=== PATIENT | female | born 1965 | race Two or more races ===

== ENCOUNTER 2017-11-02 14:49 | Emergency (ER) | payer BC, MEDICAID ==
--- NOTE | 2017-11-02 15:34 | ER Document Report ---
ED Medical Screen (RME) - General Chief Complaint: Nausea/Vomiting Stated Complaint: BLOOD PRESSURE PROBLEMS Time Seen by Provider: 11/02/17 15:26 Notes: 52-year-old Mohawk-speaking female visiting from out of town. Past medical history diabetes on insulin, hypertension on medication, chronic renal failure on peritoneal dialysis. Did dialysis yesterday. She does not look at the fluid when it drains out. She has felt ill for the past 3 days. She had nausea vomiting 3 times yesterday and 4 times today. She feels dehydrated and weak. Her blood pressure is low compared normal. She reports her baseline blood pressure on medication is 124 systolic. She stopped taking her blood pressure medication 3 days ago due to how she was feeling and her blood pressure being low. There is no history of fever, no URI symptoms. - Related Data Allergies/Adverse Reactions: No Known Allergies Allergy (Unverified 11/02/17 14:53) Past Medical History - Social History Chew tobacco use (# tins/day): No Frequency of alcohol use: None Drug Abuse: None - Past Medical History Cardiac Medical History: Reports: Hx Hypertension Endocrine Medical History: Reports: Hx Diabetes Mellitus Type 2 Renal/ Medical History: Reports: Hx Peritoneal Dialysis
[2017-11-02] MEDS ORDERED: ONDANSETRON 4 MG TAB.RAPDIS PO ONE (16:20)
--- NOTE | 2017-11-02 16:24 | RADIOLOGY REPORT (SQ) ---
EXAM DESCRIPTION: CHEST SINGLE VIEW COMPLETED DATE/TIME: 11/02/2017 4:12 pm REASON FOR STUDY: N,V,Dehydration, ESRD, hypotension COMPARISON: None. EXAM PARAMETERS: NUMBER OF VIEWS: One view. TECHNIQUE: Single frontal radiographic view of the chest acquired. RADIATION DOSE: NA LIMITATIONS: None. FINDINGS: LUNGS AND PLEURA: No opacities, masses or pneumothorax. No pleural effusion. MEDIASTINUM AND HILAR STRUCTURES: No masses. Contour normal. HEART AND VASCULAR STRUCTURES: Cardiac silhouette is enlarged. BONES: No acute findings. HARDWARE: None in the chest. OTHER: No other significant finding. IMPRESSION: Cardiomegaly. No acute consolidations are identified. TECHNICAL DOCUMENTATION: JOB ID: [id number] [employer]- All Rights Reserved
[2017-11-02 17:19] LABS: ABSOLUTE BASOPHILS # (AUTO) 0.1 10^3/uL (0.0-0.2); ABSOLUTE EOSINOPHILS # (AUTO) 0.1 10^3/uL (0.0-0.6); ABSOLUTE LYMPHOCYTES (AUTO) 1.8 10^3/uL (0.5-4.7); ABSOLUTE MONOCYTES (AUTO) 1.1 10^3/uL (0.1-1.4); ABSOLUTE NEUT (AUTO) 12.3 10^3/uL (1.7-8.2); BASOPHILS % (AUTO) 0.7 % (0-2); EOSINOPHILS % (AUTO) 0.8 % (0-6); HEMOGLOBIN 11.1 g/dL (12.0-15.5); LYMPHOCYTES % (AUTO) 11.4 % (13-45); MEAN CORPUSCULAR HEMOGLOBIN 30.5 pg (27.0-33.4); MEAN CORPUSCULAR HGB CONC 31.9 g/dL (32.0-36.0); MEAN CORPUSCULAR VOLUME 96 fl (80-97); PLATELET COUNT 322 10^3/uL (150-450); RED BLOOD COUNT 3.66 10^6/uL (3.72-5.28); RED CELL DISTRIBUTION WIDTH 15.8 % (11.5-14.0); SEGMENTED NEUTROPHILS % (AUTO) 80.1 % (42-78); TOTAL CELLS COUNTED % (AUTO) 100 %; WHITE BLOOD COUNT 15.4 10^3/uL (4.0-10.5)
--- NOTE | 2017-11-02 17:39 | ER Document Report ---
ED General <ANNA MARIE OLJA - Last Filed: 11/02/17 21:58> <CANDELARIA JASON - Last Filed: 11/03/17 18:17> - General Chief Complaint: Nausea/Vomiting Stated Complaint: BLOOD PRESSURE PROBLEMS Time Seen by Provider: 11/02/17 15:26 Notes: 52-year-old female with renal failure on peritoneal dialysis and hypertension visiting from [place] presents with 3 days of "I feel bad" with dizziness nausea and generalized weakness. The symptoms been constant and increasing. She has had decreased oral intake and she feels dehydrated. No change in her peritoneal dialysis. No abdominal pain. She has had peritoneal dialysisassociated parotitis once before and had severe abdominal pain. She denies fevers chills but feels generally sick. No chest pain or shortness of breath. No leg swelling. Denies focal numbness tingling weakness or speech problems (CANDELARIA JASON) - Related Data Allergies/Adverse Reactions: No Known Allergies Allergy (Unverified 11/02/17 14:53) Past Medical History - General Information source: Patient - Social History Smoking Status: Never Smoker Chew tobacco use (# tins/day): No Frequency of alcohol use: None Drug Abuse: None Family History: None Patient has suicidal ideation: No Patient has homicidal ideation: No - Past Medical History Cardiac Medical History: Reports: Hx Hypertension Endocrine Medical History: Reports: Hx Diabetes Mellitus Type 2 Renal/ Medical History: Reports: Hx Peritoneal Dialysis <CANDELARIA JASON - Last Filed: 11/03/17 18:17> Review of Systems <ANNA MARIE LOJA - Last Filed: 11/02/17 21:58> <CANDELARIA JASON - Last Filed: 11/03/17 18:17> - Review of Systems Notes: REVIEW OF SYSTEMS GEN: General is weakness no fevers ENT: Denies sore throat, nasal discharge, ear pain EYES: Denies blurry vision, eye pain, discharge CV: Denies chest pain, palpitations, edema RESP: Denies cough, shortness of breath, wheezing GI: Nausea vomiting no abdominal pain or diarrhea MSK: Denies joint pain/swelling, edema, SKIN: Denies rash, skin lesions LYMPH: Denies swollen glands/lymph nodes NEURO: Denies headache, focal weakness or numbness, dizziness PSYCH: Denies depression, suicidal or homicidal ideation PHYSICAL EXAMINATION General: No acute distress, well-nourished Head: Atraumatic, normocephalic ENT: Mouth normal, oropharynx moist, no exudates or tonsillar enlargement Eyes: Conjunctiva normal, pupils equal, lids normal Neck: No JVD, supple, no guarding CVS: Normal rate, regular rhythm, no murmurs Resp: No resp distress, equal and normal breath sounds bilaterally GI: Nondistended, soft, no tenderness to palpation, no rebound or guarding. Peritoneal dialysis catheter site is clean fluid is clear. Ext: No deformities, no edema, normal range of motion in upper and lower ext Back: No CVA or midline TTP Skin: No rash, warm Lymphatic: No lymphadeopathy noted Neuro: Awake, alert. Face symmetric. GCS 15. Cranial nerves IIthrough 12 are intact, no pronator drift normal cna hospice normal sensation in all 4 extremities. ( CANDELARIA JASON) - Vital signs Vitals: Resp Pulse Ox 24 H 97 11/02/17 15:52 11/02/17 15:52 Course - Laboratory Result Diagrams: 11/02/17 16:58 11/02/17 21:00 <ANNA MARIE LOJA - Last Filed: 11/02/17 21:58> - Laboratory Result Diagrams: 11/02/17 16:58 11/02/17 21:00 - Diagnostic Test Radiology reviewed: Image reviewed, Reports reviewed <CANDELARIA JASON - Last Filed: 11/03/17 18:17> - Re-evaluation Re-evalutation: 11/02/17 21:58 Transport has arrived for patient transfer. She remained stable and appropriate for transport at this time (ANNA MARIE LOJA) 11/02/17 17:38 52-year-old lady presents with generalized weakness nausea and dizziness in the setting of renal failure and peritoneal dialysis. She says her blood pressure at home is been low. She has no focal signs of bacterial illness on exam including no sore throat no signs and symptoms of pneumonia normal saturation and no abdominal pain suggestive of peritoneal dialysis associated peritonitis. Differential includes volume contraction, overt dialysis dehydration viral illness less likely influenza without a fever. We will do basic labs and hydrate her orally because she is a very difficult IV stick. She was given Zofran for nausea. 11/02/17 18:18 Patient has hyperkalemia and multiple other antibiotics including leukocytosis. She has a detectable troponin above 1. Her EKG is nonischemic. This may be due to renal failure but needs to rule out ACS. Given her multiple problems I will transfer to [facility] where she can cardiology backup and definitively rule out acute coronary syndrome. I ordered her albuterol nebulizer Lasix insulin and glucose. Blood cultures have been drawn but I do not see a source of infection right now so I will not give antibiotics. 11/02/17 18:[address] Bond from [facility] who accepted the patient. I will write for a repeat potassium in a couple of hours. Hemodynamically stable routine transport. (CANDELARIA JASON) - Vital Signs Vital signs: Temp Pulse Resp BP Pulse Ox 98.1 F 84 20 140/64 H 98 11/02/17 19:25 11/02/17 19:25 11/02/17 20:41 11/02/17 20:41 11/02/17 20:19 - Laboratory Laboratory results interpreted by me: 11/02/17 11/02/17 11/02/17 16:58 16:58 20:03 WBC 15.4 H RBC 3.66 L Hgb 11.1 L Hct 35.0 L MCHC 31.9 L RDW 15.8 H Seg Neutrophils % 80.1 H Lymphocytes % 11.4 L Absolute Neutrophils 12.3 H Sodium Potassium 5.9 H Chloride 93 L Anion Gap 21 H BUN 86 H Creatinine 11.60 H Est GFR ( Amer) 4 L Est GFR (Non-Af Amer) 3 L Glucose 143 H POC Glucose 124 H AST 70 H ALT 113 H Alkaline Phosphatase 149 H Albumin 3.4 L 11/02/17 21:00 WBC RBC Hgb Hct MCHC RDW Seg Neutrophils % Lymphocytes % Absolute Neutrophils Sodium 135.4 L Potassium Chloride 93 L Anion Gap BUN 86 H Creatinine 11.51 H Est GFR ( Amer) 4 L Est GFR (Non-Af Amer) 3 L Glucose 201 H POC Glucose AST ALT Alkaline Phosphatase Albumin Critical Care Note <ANNA MARIE LOJA - Last Filed: 11/02/17 21:58> - Critical Care Note Total time excluding time spent on procedures (mins): 35 <CANDELARIA JASON - Last Filed: 11/03/17 18:17> - Critical Care Note Comments: The above patient is critically ill. Not including procedures, but including direct re-evaluations, speaking with patient and/or consultants, interpreting results, and documenting, I spent the total amount of minute listed listed above on critical care time (CANDELARIA JASON) Discharge <ANNA MARIE LOJA - Last Filed: 11/02/17 21:58> <CANDELARIA JASON - Last Filed: 11/03/17 18:17> - Discharge Clinical Impression: NSTEMI (non-ST elevated myocardial infarction) Nausea and vomiting Qualifiers: Vomiting type: unspecified Vomiting Intractability: non-intractable Qualified Code(s): R11.2 - Nausea with vomiting, unspecified Chronic kidney disease Qualifiers: Chronic kidney disease stage: unspecified stage Qualified Code(s): N18.9 - Chronic kidney disease, unspecified Condition: Fair Disposition: [facility]
[2017-11-02 17:41] LABS: ALANINE AMINOTRANSFERASE 113 U/L (9-52); ALBUMIN 3.4 g/dL (3.5-5.0); ALKALINE PHOSPHATASE 149 U/L (38-126); ASPARTATE AMINO TRANSFERASE 70 U/L (14-36); BILIRUBIN,DIRECT 0.4 mg/dL (0.0-0.4); BILIRUBIN,TOTAL 0.4 mg/dL (0.2-1.3); BLOOD UREA NITROGEN 86 mg/dL (7-20); CREATINE KINASE 76 U/L (30-135); GLUCOSE 143 mg/dL (75-110); MAGNESIUM 2.2 mg/dL (1.6-2.3); TOTAL PROTEIN 6.6 g/dL (6.3-8.2)
[2017-11-02 18:01] LABS: CARBON DIOXIDE 24 mmol/L (22-30); CHLORIDE 93 mmol/L (98-107)
[2017-11-02 18:04] LABS: ANION GAP 21 (5-19); POTASSIUM 5.9 mmol/L (3.6-5.0)
[2017-11-02] MEDS ORDERED: ALBUTEROL SULFATE 0.083% NEB 2.5 MG/3 ML AMPUL NEB ONE (18:16)
[2017-11-02] MEDS ORDERED: INSULIN REG, HUMAN 100 UNIT/ML 3 ML VIAL (PYX) IV ONE (18:17)
[2017-11-02] MEDS ORDERED: FUROSEMIDE INJ/PF 40 MG/4 ML SDV IV ONE (18:17)
[2017-11-02] MEDS ORDERED: DEXTROSE 50%-WATER 25 GM/50 ML DISP.SYRIN IV ONE (18:17)
[2017-11-02] MEDS ORDERED: ASPIRIN 325 MG TABLET PO ONE (18:41)
[2017-11-02 20:47] VITALS: BP 140/64
[2017-11-02 21:27] LABS: ANION GAP 17 (5-19); BLOOD UREA NITROGEN 86 mg/dL (7-20); CALCIUM 9.4 mg/dL (8.4-10.2); CARBON DIOXIDE 25 mmol/L (22-30); CHLORIDE 93 mmol/L (98-107); GLUCOSE 201 mg/dL (75-110); SODIUM 135.4 mmol/L (137-145)
[2017-11-02 21:33] LABS: POTASSIUM 4.5 mmol/L (3.6-5.0)
--- NOTE | 2017-11-04 12:14 | EKG REPORT ---
SEVERITY:- ABNORMAL ECG - SINUS RHYTHM PROBABLE INFERIOR INFARCT, AGE INDETERMINATE CONSIDER ANTERIOR INFARCT : Confirmed by: Jenny Adams MD 04-Nov-2017 12:13:13
== END 2017-11-02 22:10 | disposition short-term general hospital (02) ==
LOC: ER 14:49
DX: I21.4 Non-ST elevation (NSTEMI) myocardial infarction (principal); R11.2 Nausea with vomiting, unspecified; N18.9 Chronic kidney disease, unspecified; R42 Dizziness and giddiness; R53.1 Weakness; R11.0 Nausea; I10 Essential (primary) hypertension; R63.0 Anorexia; Z99.2 Dependence on renal dialysis
CPT/HCPCS: 93005; 94640; 99291; 96374; 96375; 36415; 87040; 82962; 82550; 83735; 85025; 80048; 80053; 84484; 71010; 93010; J3490; S0119; J1940; J1815